=== PATIENT | male | born 1980 | race Caucasian/White ===

== ENCOUNTER → 2021-07-22 08:23 | Outpatient (CLI) | payer BC, SELFPAY ==
[2021-07-22 10:26] LABS: Anion Gap 7 (5-15); BUN 20 mg/dL (7-18); Chloride 105 mmol/L (98-107); Cholesterol 181 mg/dL (200); Creatinine, Serum 1.05 mg/dL (0.70-1.30); EST Glomerular Filtration Rate 82 mL/min (>60); Est Glom Filt Rate - Afr Amer 99 mL/min (>60); Glucose 101 mg/dL (74-106); High Density Lipoprotein 34 mg/dL; Potassium 4.2 mmol/L (3.5-5.1); Sodium Level 138 mmol/L (136-145); Triglycerides 104 mg/dL; Very Low Density Lipoprotein 21 mg/dL (5-40)
== END ==
PROVIDERS: PCP Family Medicine; Referring Provider Family Medicine; Visit Provider Family Medicine
DX: I10 Essential (primary) hypertension (principal); E78.5 Hyperlipidemia, unspecified
CPT/HCPCS: 36415; 80048; 80061

== ENCOUNTER 2022-10-10 15:13 | Emergency (ER) | payer BC, SELFPAY ==
[2022-10-10 15:17] VITALS: BP 160/94; PULSE 130; RESP 16; TEMP 37.1; O2SAT 96; BMI 30.5
--- NOTE | 2022-10-10 18:22 | CT_ITS ---
EXAM: CT ABDOMEN AND PELVIS WITH INTRAVENOUS CONTRAST CLINICAL INDICATION: rectal Bleeding TECHNIQUE: Helically acquired images were obtained of the abdomen and pelvis with intravenous contrast. This CT exam was performed using one or more of the following dose reduction techniques: automated exposure control, adjustment of the mA and/or kV according to patient size, and/or use of iterative reconstruction technique. This report was created using [employer] report generation technology. CONTRAST: IV 100mL Isovue-370 COMPARISON: None. FINDINGS: LOWER THORAX: Unremarkable. Lung bases are clear. No cardiomegaly. No significant pericardial effusion. ABDOMEN: LIVER: Unremarkable. Homogeneous. No focal mass. GALLBLADDER AND BILE DUCTS: Unremarkable. No calcified gallstones. No gallbladder distention or wall edema. No intra- or extrahepatic biliary ductal dilation. PANCREAS: Unremarkable. No focal cystic or solid mass. SPLEEN: Unremarkable. Normal size without focal cystic or solid mass. ADRENALS: Unremarkable. No nodules. KIDNEYS AND URETERS: Unremarkable. Normal renal size and position. No hydronephrosis. STOMACH AND BOWEL: There is mild thickening wall of the rectum which may be due to incomplete distention or perhaps an inflammatory or infiltrative processes. PELVIS: APPENDIX: No evidence of acute appendicitis. BLADDER: Unremarkable. REPRODUCTIVE: Unremarkable as visualized. No mass. ABDOMEN and PELVIS: INTRAPERITONEAL SPACE: Unremarkable. No ascites or other fluid collection. No free air. BONES/JOINTS: Unremarkable. No suspicious lytic or blastic abnormality. SOFT TISSUES: Unremarkable. No discrete abdominal or pelvic wall hernia. VASCULATURE: Unremarkable. Abdominal aorta is non-dilated. LYMPH NODES: Unremarkable. No enlarged lymph nodes. CT/Abdomen/Pelvis W IV Cont ONLY IMPRESSION: Questionable thickened wall of the rectum which may be due to incomplete distention or perhaps an inflammatory or infiltrative process. If indicated further evaluation with colonoscopy may be beneficial. No other acute abnormalities are identified. Electronically Signed: Jabier Matt MD at 19:28 EST ,
[2022-10-10] MEDS: 0.9% Normal Saline 1,000 ML 1000 ML IV (18:32)
[2022-10-10 18:40] LABS: Absolute Lymphocyte Count 1.05 X10^3/uL (0.83-4.51); Absolute Neutrophil Count 12.6 X10^3/uL (2.0-7.7); Basophil# 0.06 X10^3/uL; Basophil% 0.4 % (0-1); Eosinophil# 0.01 X10^3/uL; Eosinophils% 0.1 % (0-5); Hematocrit 46.8 % (40-54); Hemoglobin 16.7 g/dL (13.0-16.5); Lymphocyte # 1.05 X10^3/ul (0.83-4.51); Lymphocyte % 7.1 % (19-41); Mean Corp Hgb Conc 35.7 g/dL (32-36); Mean Platelet Vol. 9.9 fl (6.2-12.0); Monocyte% 6.8 % (0-10); NRBC Flagged by Analyzer 0 % (0-5); Neutrophil # 12.55 X10^3/uL (2.7-7.7); Neutrophil % 85.3 % (47-70); Platelet Count 248 K/mm3 (150-450); RBC Distribution Width CV 12.6 % (11.6-14.6); RBC Distribution Width SD 38.4 fl (35.1-43.9); Red Blood Count 5.57 M/mm3 (4.6-6.2); White Blood Count 14.7 K/mm3 (4.4-11.0)
[2022-10-10 18:55] LABS: ALB/GLOB Ratio 1.4 RATIO (0.9-2.4); AST(SGOT) 21 U/L (15-37); Alanine Aminotransfer ALT/SGPT 43 U/L (16-61); Albumin, Serum 4.3 g/dL (3.2-5.0); Alkaline Phosphatase 56 U/L (45-117); Anion Gap 7 (5-15); BUN 14 mg/dL (7-18); BUN/Creat Ratio 14.1 RATIO (10-20); Calcium,Total 9.4 mg/dL (8.5-10.1); Chloride 105 mmol/L (98-107); Creatinine, Serum 0.99 mg/dL (0.70-1.30); EST Glomerular Filtration Rate 87 mL/min (>60); Est Glom Filt Rate - Afr Amer 105 mL/min (>60); Globulin 3.1 g/dL (2.2-4.2); Glucose 96 mg/dL (74-106); Potassium 3.7 mmol/L (3.5-5.1); Protein, Total 7.4 g/dL (6.4-8.2); Sodium Level 139 mmol/L (136-145)
[2022-10-10 19:32] VITALS: BP 136/91; BP 144/79; PULSE 82; PULSE 87; PULSE 92
[2022-10-10 19:51] LABS: Bacteria 0 SEEN /hpf (None Seen); Mucous, Urine 0 SEEN /hpf (<or=2+); Red Blood Cells-Urine 0 SEEN /hpf (0-5); Squamous Epithelial Cells - UA 0 SEEN /hpf (0-5); White Blood Cells 0 SEEN /hpf (0-5)
[2022-10-10 19:53] LABS: Color, Urine Yellow (Yellow); Glucose, Dipstick Normal (Normal); Ketone-Dipstick Negative (Negative); Leukocyte Esterase-Dipstick 500 /ul (Negative); Nitrite-Dipstick Positive (Negative); Occult Blood-Urine Negative /ul (Negative); Protein-Dipstick 15 mg/dl (Negative); Specific Gravity, Urine 1.005 (1.002-1.030); Urine Bilirubin Dipstick Negative (Negative); Urine Clarity Clear (Clear); Urine Urobilinogen Normal (Normal)
[2022-10-10 21:09] VITALS: BP 138/78; PULSE 97; RESP 16; O2SAT 100
--- NOTE | 2022-10-10 21:13 | ED.VIS.GI ---
HPI HPI - GI History of Present Illness Chief Complaint: GI Bleed Narrative Narrative: 42-year-old male who denies significant past medical history presents with rectal bleeding over the last few days. He says bright red blood. While it had ceased, it has returned where it has wet his underwear and his jeans. He denies any chest pain or lightheadedness. He does not take blood thinners. He states he is also having cramping in his back. He denies any nausea or vomiting. No hematemesis. No real abdominal pain. He states that he passed some dark red clots also. He denies any pain with bowel movements. No fevers or chills. No exacerbating or alleviating factors. He thought maybe he had a hemorrhoid, but the bleeding has gotten worse today. [facility] Medical History HTN (hypertension) Home Medications ascorbic acid (vitamin C) 500 mg chewable tablet (Vitamin C) 500 mg PO DAILY 10/10/22 [History Last Taken Unknown] ciprofloxacin HCl 500 mg tablet (Cipro) 500 mg PO BID #20 tabs 10/10/22 [Rx Last Taken Unknown] lisinopril 40 mg tablet 40 mg PO DAILY 10/10/22 [History Last Taken Unknown] metronidazole 500 mg tablet 500 mg PO TID #30 tabs 10/10/22 [Rx Last Taken Unknown] Allergy/AdvReac Type Severity Reaction Status Date / Time No Known Allergies Allergy Verified 10/10/22 15:16 Social History Smoking Status: Never smoker ROS ROS ED ROS Narrative Constitutional: No fever, no chills. HEENT: No sore throat. No neck pain. No loss of vision. No rhinorrhea. Cardiovascular: No chest pain. No palpitations. No pedal edema. Respiratory: No cough, no shortness of breath. Abdominal: No abdominal pain. No nausea. No vomiting. No hematemesis. Positive rectal bleeding, bright red with passage of dark clots. Genitourinary: No dysuria. No hematuria. Musculoskeletal: No myalgias. No arthralgias. Neurologic: No headaches. No dizziness. No lightheadedness. Skin: No rash. No change in color. Psychiatric: No depression. No anxiety. EXAM Physical Exam Narrative Exam Narrative: Afebrile. Vital signs noted. HEENT: Normocephalic. Atraumatic. PERRL, EOMI. Neck soft and supple. No point tenderness or step off. Cardiovascular: Regular rate and rhythm. No murmurs, rubs, or gallops appreciated. Respiratory: No tachypnea. Lungs clear to auscultation bilaterally. Gastrointestinal: Abdomen soft, nontender, with normoactive bowel sounds. No rebound or guarding. Chaperoned rectal examination reveals dark red blood on finger but no active hemorrhaging. No fluctuance. No external hemorrhoids. Neurological: Awake. Alert. Nonfocal, nonlateralizing. Skin: No rash. Normal color. No pallor. Musculoskeletal: No pedal edema. Full range of motion extremities. Const Vital Signs: 10/10/22 15:17 10/10/22 19:32 Temperature 98.8 F Temperature Source Temporal Pulse Rate 130 H Pulse Rate [Lying] 92 Pulse Rate [Sitting (for 1 minute prior to obtaining)] 82 Pulse Rate [Standing (for 1 minute prior to obtaining)] 87 Respiratory Rate 16 Blood Pressure 160/94 H Blood Pressure [Lying] 144/79 H Blood Pressure [Sitting (for 1 minute prior to obtaining)] 136/91 H Blood Pressure [Standing (for 1 minute prior to obtaining)] 144/79 H Blood Pressure Mean 116 Blood Pressure Mean [Lying] 100 Blood Pressure Mean [Sitting (for 1 minute prior to obtaining)] 106 Blood Pressure Mean [Standing (for 1 minute prior to obtaining)] 100 Pulse Ox 96 Oxygen Delivery Method Room Air MDM MDM MDM Narrative Medical decision making narrative: Comprehensive work-up was pursued. Patient has an elevated white count of 14.7, hemoglobin hemoconcentrated at 16.7 with hematocrit 46.8. Platelet count normal at 248. His electrolyte panel shows a BUN normal at 14 with creatinine 0.99. I do not feel this is an upper GI bleed. His urinalysis is negative for infection with [address] of the abdomen and pelvis with IV contrast was obtained because of his rectal bleeding. Orthostatics are negative. His CT of the abdomen and pelvis does show rectal wall thickening which may be an infiltrative or infectious process. Given his rectal bleeding and his CT results with elevated white count of 14.7, he does not have history of Crohn's or ulcerative colitis of which she is aware. I will start him on Cipro and Flagyl. He was referred to Dr. Cervantes for colonoscopy. Given that I feel his lower GI bleeding is stable, I feel he can be discharged safely home with follow-up to Dr. Cervantes with gastroenterology. Return instructions to the emergency department were reviewed. Disposition is discharged home in stable condition. Lab Data Attestation: I reviewed the patient's lab results. Labs: Laboratory Results - last 24 hr 10/10/22 10/10/22 10/10/22 18:30 18:30 19:44 WBC 14.7 H RBC 5.57 Hgb 16.7 H Hct 46.8 MCV 84.0 MCH 30.0 MCHC 35.7 RDW Std Deviation 38.4 RDW Coeff of Latrice 12.6 Plt Count 248 MPV 9.9 Immature Gran % (Auto) 0.300 Neut % (Auto) 85.3 H Lymph % (Auto) 7.1 L [place] % (Auto) 6.8 Eos % (Auto) 0.1 Baso % (Auto) 0.4 Absolute Neuts (auto) 12.6 H Absolute Lymphs (auto) 1.05 Nucleated RBC % 0 Sodium 139 Potassium 3.7 Chloride 105 Carbon Dioxide 27.0 Anion Gap 7 BUN 14 Creatinine 0.99 Estim Creat Clear Calc 105.60 Est GFR (MDRD) Af Amer 105 Est GFR (MDRD) Non-Af 87 BUN/Creatinine Ratio 14.1 Glucose 96 Calcium 9.4 Total Bilirubin 0.50 AST 21 ALT 43 Alkaline Phosphatase 56 Total Protein 7.4 Albumin 4.3 Globulin 3.1 Albumin/Globulin Ratio 1.4 Urine Color Yellow Urine Clarity Clear Urine pH 7.0 Ur Specific [place] 1.005 Urine Protein 15 H Urine Glucose (UA) Normal Urine Ketones Negative Urine Occult Blood Negative Urine Nitrite Positive H Urine Bilirubin Negative Urine Urobilinogen Normal Ur Leukocyte Esterase 500 H Urine RBC 0 SEEN Urine WBC 0 SEEN Ur Squamous Epith Cells 0 SEEN Urine Bacteria 0 SEEN Urine Mucus 0 SEEN Radiography Diagnostic Testing: Clinical Impression(s) from Imaging Studies Abdomen/Pelvis CT 10/10/22 18:22 IMPRESSION: Questionable thickened wall of the rectum which may be due to incomplete distention or perhaps an inflammatory or infiltrative process. If indicated further evaluation with colonoscopy may be beneficial. No other acute abnormalities are identified. Electronically Signed: Jabier Matt MD at 19:28 EST , Discharge Plan Triage Chief Complaint: GI Bleed ED Provider: Vasyl Lopez Dx/Rx/DC Orders Clinical Impression: Rectal bleeding, Rectal inflammation Instructions: ED Lower GI Bleeding (Stable) Prescriptions: New ciprofloxacin HCl [Cipro] 500 mg tablet 500 mg PO BID Qty: 20 0RF metronidazole 500 mg tablet 500 mg PO TID Qty: 30 0RF No Action ascorbic acid (vitamin C) [Vitamin C] 500 mg Tablet,Chewable 500 mg PO DAILY lisinopril 40 mg Tablet 40 mg PO DAILY Primary Care Provider: Yuri Velasco Referrals: Yuri Velasco MD [Primary Care Provider] - As soon as possible Friend,DO Dawood [Med Staff - Active Staff] - 1 Day Disposition Disposition: Home, Self Care
[2022-10-10] MEDS: Ciprofloxacin 500 MG Tablet PO (21:27)
[2022-10-10] MEDS: metroNIDAZOLE 500 MG Tablet PO (21:27)
[2022-10-10 21:33] VITALS: BP 128/80; PULSE 66; RESP 18; TEMP 36.6; O2SAT 99
== END 2022-10-10 21:34 | disposition home or self-care (01) ==
PROVIDERS: Emergency Provider Emergency Medicine; PCP Family Medicine; Visit Provider Emergency Medicine
DX: K62.5 Hemorrhage of anus and rectum (principal); I10 Essential (primary) hypertension
CPT/HCPCS: 74177; 80053; 81001; 85025; 96360; 96361; 99284; J7030; Q9967; A4216

== ENCOUNTER → 2022-10-20 | Outpatient (CLI) | payer BC, SELFPAY ==
[2022-10-20 11:05] LABS: Erythrocyte Sedimentation Rate 14 mm/hr (0-20)
[2022-10-20 11:06] LABS: Absolute Lymphocyte Count 2.16 X10^3/uL (0.83-4.51); Absolute Neutrophil Count 3.7 X10^3/uL (2.0-7.7); Basophil# 0.09 X10^3/uL; Basophil% 1.3 % (0-1); Eosinophil# 0.06 X10^3/uL; Eosinophils% 0.9 % (0-5); Hematocrit 49.9 % (40-54); Hemoglobin 17.2 g/dL (13.0-16.5); Lymphocyte # 2.16 X10^3/ul (0.83-4.51); Mean Corp Hgb Conc 34.5 g/dL (32-36); Mean Corpuscular Hgb 29.5 pg (27.0-32.0); Mean Corpuscular Volume 85.4 fL (80-94); Mean Platelet Vol. 9.4 fl (6.2-12.0); Monocyte# 0.67 X10^3/uL; Monocyte% 9.9 % (0-10); NRBC Flagged by Analyzer 0 % (0-5); Neutrophil # 3.74 X10^3/uL (2.7-7.7); Neutrophil % 55.3 % (47-70); Platelet Count 367 K/mm3 (150-450); RBC Distribution Width CV 12.7 % (11.6-14.6); Red Blood Count 5.84 M/mm3 (4.6-6.2); White Blood Count 6.8 K/mm3 (4.4-11.0)
[2022-10-20 11:26] LABS: ALB/GLOB Ratio 1.2 RATIO (0.9-2.4); AST(SGOT) 31 U/L (15-37); Alanine Aminotransfer ALT/SGPT 66 U/L (16-61); Albumin, Serum 4.2 g/dL (3.2-5.0); Alkaline Phosphatase 53 U/L (45-117); Anion Gap 5 (5-15); BUN 15 mg/dL (7-18); BUN/Creat Ratio 13.3 RATIO (10-20); CRP < 2.90 mg/L (0.0-3.0); Calcium,Total 9.8 mg/dL (8.5-10.1); Chloride 103 mmol/L (98-107); Creatinine, Serum 1.13 mg/dL (0.70-1.30); EST Glomerular Filtration Rate 75 mL/min (>60); Est Glom Filt Rate - Afr Amer 91 mL/min (>60); Globulin 3.4 g/dL (2.2-4.2); Glucose 109 mg/dL (74-106); LDH 184 U/L (87-241); Potassium 4.4 mmol/L (3.5-5.1); Protein, Total 7.6 g/dL (6.4-8.2); Sodium Level 137 mmol/L (136-145)
[2022-10-21 14:08] LABS: Anti-Centromere B Ab <0.2 AI (0.0-0.9); Anti-Chromatin <0.2 AI (0.0-0.9); Anti-Jo <0.2 AI (0.0-0.9); Anti-Scleroderma-70 AB <0.2 AI (0.0-0.9); RNP Ab <0.2 AI (0.0-0.9); SJOGREN'S Anti-SS-A test < 0.2 AI (0.0-0.9); SJOGREN'S Anti-SS-B test < 0.2 AI (0.0-0.9); Smith Ab <0.2 AI (0.0-0.9)
[2022-10-21 16:09] LABS: Endomysial Antibody IgA Negative (Negative)
[2022-10-21 18:24] LABS: Anti-dsDNA Ab <1 IU/mL (0-9)
[2022-10-21 18:32] LABS: Immunoglobulin A 100 mg/dL (90-386); t-Transglutaminase IgA <2 U/mL (0-3)
[2022-10-25 01:06] LABS: Albumin 4.4 g/dL (2.9-4.4); Alpha-1-Globulins 0.2 g/dL (0.0-0.4); Alpha-2-Globulins 0.7 g/dL (0.4-1.0); Cytoplasmic Ab (C-ANCA) <1:20 titer (Neg:<1:20); Gamma Globulin 0.9 g/dL (0.4-1.8); Immunoglobulin A 102 mg/dL (90-386); Immunoglobulin E 3 IU/mL (6-495); Immunoglobulin G 789 mg/dL (603-1613); Immunoglobulin M 115 mg/dL (20-172); PROEL- TOTAL PROTEIN 7.3 g/dL (6.0-8.5)
[2022-10-25 11:16] LABS: Perinuclear Ab (P-ANCA) <1:20 titer (Neg:<1:20)
== END | disposition home or self-care (01) ==
PROVIDERS: PCP Family Medicine; Visit Provider Nurse Practitioner Adult Health
DX: K62.5 Hemorrhage of anus and rectum (principal)
CPT/HCPCS: 36415; 80053; 82784; 82785; 83516; 83615; 84165; 85025; 85652; 86140; 86225; 86235; 86255; 86256; 86334

== ENCOUNTER → 2022-10-21 | Outpatient (CLI) | payer BC, SELFPAY ==
[2022-10-24 20:44] LABS: Calprotectin, Stool <16 ug/g (0-120)
== END | disposition home or self-care (01) ==
LOC: LABSPEC 12:44
PROVIDERS: PCP Family Medicine; Referring Provider Nurse Practitioner Adult Health; Visit Provider Nurse Practitioner Adult Health
DX: K62.5 Hemorrhage of anus and rectum (principal); K58.9 Irritable bowel syndrome, unspecified
CPT/HCPCS: 83630; 83993

== ENCOUNTER 2022-12-13 12:57 | Day surgery (SDC) | payer OTHER, SELFPAY ==
[2022-12-13] VITALS (8 sets, daily range): BP systolic 108–141; BP diastolic 62–88; PULSE 57–76; RESP 16–18; TEMP 36.3–36.8; O2SAT 95–97; BMI 31.1
[2022-12-13] MEDS: Lactated Ringers 1,000 ML 15 ML IV (13:20)
--- NOTE | 2022-12-13 13:56 | PCM.HP.BLA ---
History and Physical Date of Admission: 12/13/22 ?42 M who presents to the office today for f/u ED visit for rectal bleed. Had diarrhea on approx 10/09/22, then developed what he thought might be a hemorrhoid, felt like a grape at the anus, was painful, treated with Preparation H and Tucks. Had small clots when he wiped, then had rectal bleeding that soaked through his pants on 10/10/22. He went to the ED on 10/10/22. No external hemorrhoids seen on exam in the ED. CT w/ IV contrast in ED showed questionable thickening of the wall of the rectum. Treated with cipro and flagyl. Mild pelvic cramping when in ED, but otherwise no pain. Temp max 99.6 the day after he was at ED, felt chills then. No bleeding since 10/14/22. Primary care put him on miralax. Bowels are softer than normal on the miralax. No nausea, vomiting, dysphagia, heartburn. No weight loss. PMH: HTN 10/10/22?CT/Abdomen/Pelvis W IV Cont ONLY IMPRESSION: Questionable thickened wall of the rectum which may be due to incomplete distention or perhaps an inflammatory or infiltrative process.? If indicated further evaluation with colonoscopy may be beneficial.? No other acute abnormalities are identified. ROS Const Constitutional: No fatigue ENT ENT: No difficulty swallowing Gastro GI: Positive for change in bowel habits, diarrhea and Blood in stool; No abdominal pain, belching, bloating, change in stool character, coffee ground emesis, constipation, cramping, heartburn, difficulty swallowing, feeling full early, excessive flatus, incontinent of stools, Vomiting blood/hematemesis, loose stools, Black,tarry stools, nausea/dyspepsia, pain with swallowing, vomiting or other Musc Musculoskeletal: No joint pain Skin Skin: No yellowing of the eye or itchy eyes Psych Psychiatric: No anxiety and No depression Endo Endocrine: No fatigue Aller/Imm Allergy/Immunologic: No itchy eyes Selwyn/Lymp Hematologic/Lymphatic: No easy bleeding or easy bruising Exam Const General: cooperative, healthy appearing and comfortable Orientation: alert, awake and oriented x3 HENMT Head: normal to inspection Eyes Conjunctivae: conjunctivae normal Sclera: sclerae normal Resp Effort & Inspection: normal respiratory effort GI Inspection: normal to inspection Quality Reporting Tobacco Screening ([facility] 138) Smoking Status: Never smoker Assessment and Plan Assessment and Plan (1) Rectal bleed: ?Status:?Acute ?Plan: 42 yr old male with rectal bleeding following diarrheal episode, questionable thickened wall of rectum on CT, treated with cipro and flagyl by ED. He may have had a thrombosed hemorrhoid but that doesn't explain the significant amount of blood and clots. Will get stool and blood tests. DDx includes infection, IBD, ischemia, malignancy. He will be scheduled for colonoscopy with office f/u 2 wks later. ? ? ? Orders: Orders Comprehensive Metabolic Profil Today K62.5 - Hemorrhage of anus and rectum ? CRP Today K62.5 - Hemorrhage of anus and rectum ? LDH Today K62.5 - Hemorrhage of anus and rectum ? CBC W/Diff, Automated Today K62.5 - Hemorrhage of anus and rectum ? Erythrocyte Sed Rate Today K62.5 - Hemorrhage of anus and rectum ? AVERY Comprehensive Panel Today K62.5 - Hemorrhage of anus and rectum ? Calprotectin, Stool Today K62.5 - Hemorrhage of anus and rectum ? Stool Lactoferrin/WBC Today K58.9 - Irritable bowel syndrome without diarrhea, K62.5 - Hemorrhage of anus and rectum ? ANCA Today K62.5 - Hemorrhage of anus and rectum ? Celiac Disease Profile Today K62.5 - Hemorrhage of anus and rectum ? Immunoglobulins G/A/M/E Today K62.5 - Hemorrhage of anus and rectum ? ASMITA + Protein Elect, Serum Today K62.5 - Hemorrhage of anus and rectum ? Miscellaneous Lab Procedure Today K62.5 - Hemorrhage of anus and rectum ? I have examined the patient and the H&P has been reviewed. There are no clinical changes since date of exam.
--- NOTE | 2022-12-13 14:00 | COLBX_PTH ---
PATIENT: QUIANA FRANCIS LOC: EN U#:[id number] AGE/SX: 42/M ROOM: RE12/13/[address]: Dr. Dawood Cervantes DO : 1980 BED: DIS: 12/13/2022 SPEC #: [id number] RECD: 12/13/22 17:05 STATUS: GERALDINE BILLY #: [id number] EDWARD: 12/13/22 14:[address]: Dawood Cervantes DEPT: SURGICAL PATHOLOGY RECD BY: Jose Spencer ENTERED: 12/14/22 08:31 SP TYPE: COLON BX OTHR DR: Dr. Que Velasco MD Tissues: Rectum, NOS Procedures: Surgery Specimen Level IV HEADER OPERATION: Colonoscopy (MAC) with biopsy PRE-OP DIAGNOSIS: Rectal bleed TISSUE SUBMITTED: Rectal biopsy MICROSCOPIC DIAGNOSIS Rectal polyp, biopsy: Polypoid fragments of benign colonic mucosa. See comment. AM:[email or web address] 12/15/2022 COMMENT Neither hyperplastic nor adenomatous change is identified. Clinical correlation is suggested. MICROSCOPIC DESCRIPTION Slides are reviewed. GROSS DESCRIPTION Received in fixative is one container labeled with the patient's name and designated rectal biopsy. The specimen consists of two irregular fragments of light cowan soft tissue that in aggregate measure 0.6 x 0.3 x 0.1 cm. The specimen is totally submitted in one cassette. / SJ:kanwal 12/14/2022 TC:5 CPT: 29509
--- NOTE | 2022-12-13 14:55 | OP.CCLET_ITS ---
12/13/2022 Yuri Velasco [address] [place] [address] Re : Colonoscopy procedure for Preston Weathers Dear Dr. Velasco This procedure was performed on Tuesday, December 13, 2022. My impressions and recommendations are as follows: Impressions : - Congested mucosa in the rectum. Biopsied. - The examined portion of the ileum was normal. Recommendations : - Discharge patient to home. - Resume previous diet. - Continue present medications. - Await pathology results. - Repeat colonoscopy in 10 years for screening purposes. My findings are described in the full procedure note, which is enclosed. If I can be of further assistance, please feel free to contact me at . Sincerely, Dawood Cervantes, 12/13/2022 2:55:20 PM This report has been signed electronically.
--- NOTE | 2022-12-13 14:55 | OP.COLON_ITS ---
Patient Name: Preston Weathers Procedure Date: 12/13/2022 2:21 PM Date of : 1980 Age: 42 Procedure: Colonoscopy Indications: Hematochezia, Abnormal CT of the GI tract Providers: Dawood Cervantes DO Medicines: Monitored Anesthesia Care Patient Profile: This is a 42 year old male. Refer to note in patient chart for documentation of history and physical. Last Colonoscopy: none. The patient's first colonoscopy is today. Complications: No immediate complications. Procedure: Pre-Anesthesia Assessment: - Prior to the procedure, a History and Physical was performed, and patient medications and allergies were reviewed. The risks and benefits of the procedure and the sedation options and risks were discussed with the patient. All questions were answered and informed consent was obtained. Patient identification and proposed procedure were verified by the physician in the pre-procedure area. Mental Status Examination: alert and oriented. Airway Examination: normal oropharyngeal airway and neck mobility. Respiratory Examination: clear to auscultation. CV Examination: normal. Prophylactic Antibiotics: The patient does not require prophylactic antibiotics. Prior Anticoagulants: The patient has taken no previous anticoagulant or antiplatelet agents. ASA Grade Assessment: II - A patient with mild systemic disease. After reviewing the risks and benefits, the patient was deemed in satisfactory condition to undergo the procedure. The anesthesia plan was to use monitored anesthesia care (MAC). Immediately prior to administration of medications, the patient was re-assessed for adequacy to receive sedatives. The heart rate, respiratory rate, oxygen saturations, blood pressure, adequacy of pulmonary ventilation, and response to care were monitored throughout the procedure. The physical status of the patient was re-assessed after the procedure. After I obtained informed consent, the scope was passed under direct vision. Throughout the procedure, the patient's blood pressure, pulse, and oxygen saturations were monitored continuously. The Colonoscope was introduced through the anus and advanced to the terminal ileum. The colonoscopy was performed without difficulty. The patient tolerated the procedure well. The quality of the bowel preparation was good. Scope In: 2:31:31 PM Scope Withdrawal Time 0 hours 10 minutes 54 seconds Scope Out: 2:45:03 PM Total Procedure Duration Time 0 hours 13 minutes 32 seconds Findings: The perianal and digital rectal examinations were normal. An area of mildly congested mucosa was found in the rectum. Biopsies were taken with a cold forceps for histology. Verification of patient identification for the specimen was done. Estimated blood loss was minimal. The terminal ileum appeared normal. Impression: - Congested mucosa in the rectum. Biopsied. - The examined portion of the ileum was normal. Recommendation: - Discharge patient to home. - Resume previous diet. - Continue present medications. - Await pathology results. - Repeat colonoscopy in 10 years for screening purposes. Procedure Code(s): --- Professional --- 21061, Colonoscopy, flexible; with biopsy, single or multiple CPT copyright 2017 [employer]. All rights reserved. The codes documented in this report are preliminary and upon dry plasterer helper review may be revised to meet current compliance requirements. Dawood Cervantes DO 12/13/2022 2:55:20 PM This report has been signed electronically. Number of Addenda: 0 Note Initiated On: 12/13/2022 2:21 PM
== END 2022-12-13 15:47 | disposition home or self-care (01) ==
LOC: EN 12:59 → AC 13:00
PROVIDERS: PCP Family Medicine; Referring Provider Family Medicine; Visit Provider Internal Medicine Gastroenterology
PROC: 0DJD8ZZ Inspection of Lower Intestinal Tract, Via Natural or Artificial Opening Endoscopic (ICD-10-PCS; CPT 45378; principal; 2022-12-13 13:55)
DX: K62.1 Rectal polyp (principal); K58.9 Irritable bowel syndrome, unspecified
CPT/HCPCS: 45380; 88305; J7120; J2405

== ENCOUNTER → 2023-02-13 | Outpatient (CLI) | payer OTHER, SELFPAY ==
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
== END | disposition home or self-care (01) ==
LOC: MTRAD 16:08
PROVIDERS: PCP Family Medicine; Referring Provider Family Medicine; Visit Provider Family Medicine
DX: S69.90XA Unspecified injury of unspecified wrist, hand and finger(s), initial encounter (principal); X58.XXXA Exposure to other specified factors, initial encounter
CPT/HCPCS: 73140

== ENCOUNTER → 2024-03-27 | Outpatient (CLI) | payer OTHER, SELFPAY ==
[2024-03-27 15:43] LABS: Hemoglobin A1c 5.7 % (3.8-5.6)
[2024-03-27 15:58] LABS: ALB/GLOB Ratio 1.1 RATIO (0.9-2.4); AST(SGOT) 28 U/L (15-37); Alanine Aminotransfer ALT/SGPT 48 U/L (16-61); Albumin, Serum 3.9 g/dL (3.2-5.0); Alkaline Phosphatase 65 U/L (45-117); Anion Gap 7 (5-15); BUN 14 mg/dL (7-18); BUN/Creat Ratio 13.7 RATIO (10-20); Calcium,Total 9.6 mg/dL (8.5-10.1); Chloride 106 mmol/L (98-107); Cholesterol 242 mg/dL (200); Creatinine, Serum 1.02 mg/dL (0.70-1.30); EST Glomerular Filtration Rate 84 mL/min (>60); Est Glom Filt Rate - Afr Amer 102 mL/min (>60); Globulin 3.6 g/dL (2.2-4.2); Glucose 102 mg/dL (74-106); High Density Lipoprotein 35 mg/dL; Potassium 4.3 mmol/L (3.5-5.1); Protein, Total 7.5 g/dL (6.4-8.2); Sodium Level 138 mmol/L (136-145); Triglycerides 151 mg/dL; Very Low Density Lipoprotein 30 mg/dL (5-40)
== END | disposition home or self-care (01) ==
LOC: MFPLAB 11:41
PROVIDERS: PCP Family Medicine; Visit Provider Family Medicine
DX: I10 Essential (primary) hypertension (principal); R73.01 Impaired fasting glucose
CPT/HCPCS: 36415; 80053; 80061; 83036